=== PATIENT | female | born 1950 | race Caucasian/White ===

== ENCOUNTER 2017-04-06 08:02 | Outpatient (CLI) | payer MEDICARE | END 2017-04-06 08:03 | disposition home or self-care (01) | LOC: BICMAMMO 08:02 | DX: Z13.820 Encounter for screening for osteoporosis (principal); N95.8 Other specified menopausal and perimenopausal disorders | CPT/HCPCS: 77080 ==

== ENCOUNTER 2017-04-23 09:45 | Outpatient (CLI) | payer MEDICARE ==
--- NOTE | 2017-04-23 11:09 | ULT ---
RENAL ULTRASOUND: Date: 04-23-17 Comparison: None. History: Asymptomatic microscopic hematuria. Technique: Multiplanar grayscale sonographic imaging of the kidneys and urinary bladder obtained. FINDINGS: Right kidney measures 10.9 x 4.7 x 4.9 cm and the left kidney measures 11.4 x 4.9 x 4.9 cm. No renal mass, hydronephrosis, or stone noted on either side. Urinary bladder is poorly assessed, nearly compl etely decompressed. IMPRESSION: No hydronephrosis. If hematuria persists, then further imaging is clinically warranted, perhaps CT ab domen and pelvis with and without contrast using a CT urogram protocol would be beneficial. POS: NIGEL
== END 2017-04-23 09:46 | disposition home or self-care (01) ==
LOC: EDBD → ULT 09:45
PROVIDERS: ATTEND Internal Medicine
DX: R31.21 Asymptomatic microscopic hematuria (principal)
CPT/HCPCS: 76770